=== PATIENT | female | born 1950 | race Asian ===

== ENCOUNTER 2017-06-05 08:26 | Day surgery (SDC) | payer OTHER ==
[~2017-06-05] VITALS: Ht 167.6 cm; Wt 79.1 kg
[2017-06-05] VITALS (15 sets, daily range): BP systolic 130–149; BP diastolic 74–81; PULSE 96–101; RESP 18–23; Ht 167.6 cm; Wt 79.1 kg
[2017-06-05] MEDS ORDERED: AMLO-147 PO (12:03)
[2017-06-05] MEDS ORDERED: ASPI81TA3 PO (12:03)
[2017-06-05] MEDS ORDERED: ATOR10TA65 PO (12:03)
[2017-06-05 12:12] LABS: BASOPHIL # 0.1 10^3/ul (0.0-0.1); BASOPHILS % 0.7 % (0.0-2.0); EOSINOPHILS # 0.2 10^3/ul (0.0-0.5); EOSINOPHILS % 2.1 % (0.0-7.0); HEMATOCRIT 41.6 % (37.0-47.0); HEMOGLOBIN 14.3 g/dl (12.0-16.0); LYMPHOCYTES # 2.5 10^3/ul (0.8-2.9); MEAN CORPUSCULAR HEMOGLOBIN 31.8 pg (29.0-33.0); MEAN CORPUSCULAR HGB CONC 34.4 g/dl (32.0-37.0); MEAN CORPUSCULAR VOLUME 92.4 fl (82.0-101.0); MEAN PLATELET VOLUME 10.2 fl (7.4-10.4); MONOCYTE # 0.6 10^3/ul (0.3-0.9); MONOCYTES % 7.3 % (0.0-11.0); NEUTROPHIL # 4.9 10^3/ul (1.6-7.5); NEUTROPHILS % 59.7 % (39.0-77.0); PLATELET COUNT 266 10^3/UL (140-415); RED CELL DISTRIBUTION WIDTH 12.6 % (11.5-14.5); WHITE BLOOD COUNT 8.2 10^3/ul (4.8-10.8)
[2017-06-05 12:25] LABS: ALBUMIN 3.9 g/dl (3.3-4.9); ALBUMIN/GLOBULIN RATIO 1.08; BILIRUBIN,INDIRECT 0.7 mg/dl (0-1.1); BILIRUBIN,TOTAL 0.7 mg/dl (0.2-1.3); TOTAL PROTEIN 7.5 g/dl (6.1-8.1)
[2017-06-05 12:27] LABS: CALCIUM 9.7 mg/dl (8.4-10.2); CREATININE 0.67 mg/dl (0.44-1.00)
[2017-06-05] MEDS ORDERED: CEFAZOLIN 2 GM/50 ML (PMX) 50 ML IVPB ONE (12:30)
[2017-06-05] MEDS ORDERED: SOD CHLORIDE 0.9% 1,000 ML IV ONE (12:30)
[2017-06-05 12:32] LABS: INR 0.89; PT RATIO 0.9
[2017-06-05 12:33] LABS: PARTIAL THROMBOPLASTIN TIME 30.7 Sec (25.0-35.0)
--- NOTE | 2017-06-05 12:35 | RADRPT ---
PROCEDURE: XR Chest. CLINICAL INDICATION: Shortness of breath TECHNIQUE: Single portable view of the chest was obtained COMPARISON: No priors for comparison FINDINGS: The trachea is midline. The cardiac silhouette and pulmonary vascularity are within normal limits. T he lungs are clear. The costophrenic angles are sharp. There is atherosclerotic calcification of the aortic knob. IMPRESSION: 1. Atherosclerotic disease of the aortic knob. No evidence of acute cardiopulmonary disease. RPTAT: AAPP Physician Papi Date Time Electronically viewed and signed by Evelyn Dewey Physician on 06/05/2017 12:35 KATERINA/
--- NOTE | 2017-06-05 13:15 | RADRPT ---
Vent Rate: 93 bpm RR Interval: 0 msec MI Interval: 140 msec QRS Duration: 72 msec QT Interval: 368 msec QTC Interval: 457 msec P-R-T Mclean: 34 - 43 - 15 degrees Normal sinus rhythm Normal ECG Electronically Signed By: Vin Dutton [id number]
[2017-06-05] MEDS ORDERED: ISOSULFAN BLUE 1% 5 ML INJ SC ONE (13:41)
[2017-06-05] MEDS ORDERED: MIDAZOLAM 1 MG/ML 2 ML INJ ONE (14:00)
[2017-06-05] MEDS ORDERED: LIDOCAINE 2% (SDV) 5 ML INJ ONE (14:00)
[2017-06-05] MEDS ORDERED: PROPOFOL 20 ML ONE (14:00)
[2017-06-05] MEDS ORDERED: ROCURONIUM 50 MG INJ ONE (14:00)
[2017-06-05] MEDS ORDERED: FENTAnyl 50 MCG/ML VIAL ONE (14:00)
[2017-06-05] MEDS ORDERED: CEFAZOLIN 1 GM INJ ONE (14:02)
[2017-06-05] MEDS ORDERED: METHYLENE BLUE 1% 10 ML INJ ONE (15:13)
[2017-06-05] MEDS ORDERED: DEXAMETHASONE 4 MG/ML 1 ML INJ ONE (15:48)
[2017-06-05] MEDS ORDERED: ONDANSETRON 4 MG INJ ONE (15:48)
--- NOTE | 2017-06-05 16:17 | SIPON ---
Date/Time of Note Date/Time of Note DATE: 06/05/17 TIME: 16:15 Operative Report Preoperative Diagnosis Invasive cancer left breast Postoperative Diagnosis Same Operation/Procedure Performed Needle directed left partial mastectomy and axillary dissection utilizing sentinel lymph node technique Surgeon see signature line advertising sales assistant Dr Leonard Second assist: KAYLEE BASHIR MD Anesthesia: general Estimated blood loss: 10 - 50 ml's Transfusion Required none Specimen Left partial mastectomy specimen and axillary lymph nodes Grafts/Implants none Complications none NICOLE ANTONY MD Jun 05, 2017 16:17
[2017-06-05] MEDS ORDERED: HYDROCODONE/APAP (7.5/325) TAB PO ONE (16:30)
--- NOTE | 2017-06-05 16:40 | OPR ---
DATE OF OPERATION: 06/05/2017 PREOPERATIVE DIAGNOSIS: Invasive cancer, left breast. POSTOPERATIVE DIAGNOSIS: Invasive cancer, left breast. OPERATION PERFORMED: Needle-directed left partial mastectomy and axillary dissection utilizing sent inel lymph node technique. ANESTHESIA: General. ANESTHESIOLOGIST: Dr. Pryor. SURGEON: Derrell Medina MD LIVESTOCK SPECULATOR: Dr. Jasvir Varela and Dr. Nay Mejia. INDICATIONS FOR PROCEDURE: The patient is a 66-year-old female who underwent screening mammography and ultrasonography and was found to have a suspicious mass in the upper outer quadrant of her left breast. A core biopsy confirmed a moderately differentiated invasive cancer. She was counseled as to the risks versus benefits of breast conservation surgery with needle-directed partial mastectomy and axillary dissection utilizing sentinel lymph node technique. She consented and was scheduled fo r surgery. DESCRIPTION OF PROCEDURE: On the morning of surgery, the patient presented to [facility], where she underwent localization of the lesion performed by attending radiologi st, Dr. Dinora Diaz. Subsequently, she was brought to the operating theater, placed under general anesthesia. The left breast and axillary region were prepped and draped in usual sterile fashion. Approximately 4 mL of 1% Lymphazurin blue dye were then injected peritumorally, and the breast was gently massaged for approximately 12 minutes. At this point, a 4 cm incision was made in the left a xillary hairline. Subcutaneous tissue was dissected with cautery down through the clavipectoral fas chester. After several minutes of attempting to identify a lymphatic containing blue dye, it was determ ined that had not reached the axilla and the most prudent thing to do would be to proceed with a lev el 1 dissection. Therefore, level 1 lymph nodes were resected with blunt dissection along the chest wall. The long thoracic nerve was moved out of harm's way and more superiorly, the axillary vein w as identified and dissected from medial to lateral. Thoracodorsal neurovascular bundle was identifi ed and kept out of harm's way. Node bearing tissue between the 2 nerves was then resected with the LigaSure device, taking great care not to injure the intercostal brachial nerves. The camille tissue was removed and sent for permanent pathologic analysis. The wound was irrigated. Minimal bleeding was controlled with cautery and a #10 Croatian Jorge-Mike drain was then brought through the left m id axillary line, cut to size, and laid within the axilla. It was secured in place with 2-0 nylon s uture in standard fashion, and then a skin incision was then reapproximated with a 4-0 Vicryl suture in subcuticular fashion. Attention was then directed to performing the partial mastectomy. A curvilinear incision was made i n the region of the previously placed localization wire. Subcutaneous tissue was dissected with cau feliciano. Skin edges were then elevated with skin hooks and wide circumferential dissection of the tiss ue associated with the localization wire then took place, taking great care to ensure adequate dm n. Specimen was elevated, transected, oriented, and sent for radiographic confirmation of capture. Capture was confirmed. This specimen was then sent for permanent pathologic analysis. The wound w as irrigated. Minimal bleeding was controlled with cautery, and the skin was reapproximated with 4- 0 Vicryl suture in subcuticular fashion. Benzoin and Steri-Strips were then applied to both wounds. The patient tolerated the procedure well. Total blood loss was approximately 30 mL. There were n o complications and the patient was transported in stable condition to the recovery room, where circ umferential compression dressing was applied. Dictated By: DERRELL MEDINA MD TL/GENEVIEVE Conf#: [id number] DID#: [id number] CC: JASVIR VARELA MD; Dr. Nay Mejia;*End*
[2017-06-05] MEDS ORDERED: ONDANSETRON 4 MG INJ IV PRN (17:00)
[2017-06-05] MEDS ORDERED: hydrALAzine 20 MG INJ IV PRN (17:00)
[2017-06-05] MEDS ORDERED: LABETALOL HCL 20MG INJ IV PRN (17:00)
[2017-06-05] MEDS: HYDROmorphONE (0.2 MG/ML) 10ML SYG IV PRN ×2 (17:16→17:25)
== END 2017-06-05 19:07 | disposition home or self-care (01) ==
LOC: SDS 08:26
PROVIDERS: ATTEND Surgery Surgical Oncology
DX: C50.412 Malignant neoplasm of upper-outer quadrant of left female breast (principal); Z17.0 Estrogen receptor positive status [ER+]; E78.5 Hyperlipidemia, unspecified; I10 Essential (primary) hypertension; E66.9 Obesity, unspecified; Z68.28 Body mass index [BMI] 28.0-28.9, adult; Z85.42 Personal history of malignant neoplasm of other parts of uterus
CPT/HCPCS: 19301; 38525; 38900; 71010; 80053; 85025; 85610; 85730; 88305; 88307; 93005; J0690; J1100; J1170; J2250; J2405; J3010; Q9968